=== PATIENT | female | born 1950 | race Caucasian/White ===

== ENCOUNTER → 2021-11-02 | Day surgery (SDC) | payer MEDICARE ==
[~2021-11-02] VITALS: Ht 160 cm; Wt 76.3 kg
[~2021-11-02] MED LIST: ASPIRIN EC81 MG PO; AZELASTINE205.5 MCG/; CELEBREX **OUT100 MG PO; COZAAR100 MG PO; DAILY VALUE1 EACH PO; FLONASE ALLER15.8 ML; HCTZ25 MG PO; LOVAZA1 GM PO; NORVASC5 MG PO; OS-CAL500 MG PO; PANTOPRAZOLE SO20 MG PO; PRAVACHOL20 MG PO; PROZAC20 MG PO; SINGULAIR10 MG PO; SYNTHROID50 MCG PO; TOPROL XL 50 MG50 MG PO; VENTOLIN HFA IN18 GM INH; VITAMIN D350 MC3 PO
[2021-11-02 07:45] LABS: HCT 40.5 % (37.0-47.0); HGB 13.8 g/dl (12.5-16.0); MCH 31.3 pg (25.0-31.0); MCHC 34.1 g/dL (32.0-36.0); MCV 91.8 fL (78.0-100.0); MPV 10.1 fL (6.0-9.5); RBC 4.41 M/uL (4.20-5.40); RDW 13.2 % (11.5-14.0); WBC 5.1 K/uL (4.0-10.5)
[2021-11-02 08:00] LABS: ALBUMIN 4.1 g/dL (3.4-5.0); BILIRUBIN - TOTAL 0.8 mg/dL (0.2-1.0); BUN/CREAT RATIO (CALC) 18.9 RATIO; CREATININE 0.9 mg/dL (0.51-0.95); GLOBULIN (CALCULATION) 3.6 g/dL; POTASSIUM 3.6 mmol/L (3.5-5.1); TOTAL PROTEIN 7.7 g/dL (6.4-8.2)
== END | disposition home or self-care (01) ==
LOC: FAS 07:00
PROVIDERS: Surgery
DX: Z12.11 Encounter for screening for malignant neoplasm of colon (principal); K57.30 Diverticulosis of large intestine without perforation or abscess without bleeding; I10 Essential (primary) hypertension; E78.00 Pure hypercholesterolemia, unspecified; G47.33 Obstructive sleep apnea (adult) (pediatric); Z86.010 Personal history of colon polyps; Z99.89 Dependence on other enabling machines and devices; Z79.82 Long term (current) use of aspirin; Z79.899 Other long term (current) drug therapy; Z90.710 Acquired absence of both cervix and uterus; Z87.891 Personal history of nicotine dependence
CPT/HCPCS: G0121; 36415; 80053; J2250; J2704; J7120